=== PATIENT | male | born 1955 | race Caucasian/White ===

== ENCOUNTER 2016-05-25 20:09 | Emergency (ER) | payer OTHER ==
[~2016-05-25] VITALS: Ht 180.3 cm; Wt 111.1 kg
--- NOTE | 2016-05-25 21:30 | ED HEAD/FACIAL INJ COMPLAINT ---
History of Present Illness General Chief Complaint: Fall Stated Complaint: FALL AND HIT HEAD, NOT SURE LOC PER PT Source: patient Exam Limitations: no limitations Vital Signs & Intake/Output Vital Signs & Intake/Output Vital Signs Date Time Temp Pulse Resp B/P Pulse O2 O2 Flow FiO2 Ox Delivery Rate 05/25 2216 98.0 88 16 133/81 99 Room Air 05/25 2200 Room Air 05/26 2015 96.8 81 18 159/90 95 Room Air Allergies Coded Allergies: No Known Allergies (05/25/16) Reconcile Medications Albuterol Sulfate (Ventolin Hfa) 90 MCG HFA.AER.AD 2 PUF INH PRN ASTHMA ( Reported) Clobetasol Propionate 0.05 % CREAM..G. 1 DAWNA TOP PRN SKIN-BOTH HANDS ( Reported) apply to affected area(s) Duloxetine HCl 60 MG CAPSULE.DR 1 CAP PO DAILY MENTAL HEALTH (Reported) Eszopiclone 3 MG TABLET 1 TAB PO QPM PRN SLEEP (Reported) Fluticasone/Salmeterol (Advair 500-50 Diskus) 500 MCG-50 MCG/DOSE BLST.W.DEV 1 PUF INH BID ASTHMA (Reported) Montelukast Sodium 10 MG TABLET 1 TAB PO QPM ASTHMA (Reported) Multivitamin (Multi-Day Vitamins) 1 EACH TABLET 1 TAB PO DAILY SUPPLEMENT ( Reported) Pantoprazole Sodium 40 MG TABLET.DR 1 TAB PO DAILY GI (Reported) Valsartan/Hydrochlorothiazide (Valsartan-Hctz 160-12.5 MG Tab) 160 MG-12.5 MG TABLET 1 TAB PO DAILY DIURETIC/BP (Reported) Triage Note: PT TO THE ER S/P SLIP AND FALL ON ICE.. PT STATES THAT HE HIT HIS HEAD. PT DOESNT THINK HE LOC. PT STATES IT TOOK HIM A WHILE TO GET UP. PT STATES THAT HE HAS NECK PAIN 03/20. -BLOODTHINNER Triage Nurses Notes Reviewed? yes Severity: mild Severity Numbers: 1 Location: occipital Method of Injury: direct blow, fall HPI: Patient is a 61-year-old male who presents emergency room seen at today this evening while ambulating down a hill he slipped and struck the back part of his head to the ground where he does not believe he lost consciousness patient states that the injury she come up a little bit when he was drowsy afterwards however currently he feels much better complains of 10 headache described as generalized. Denies any loss of consciousness BLURRED vision photophobia neck pain vomiting no medications prior to arrival (ADAM DONIS) Past History Travel History Traveled to [place] past 21 day No Medical History Any Pertinent Medical History? see below for history Respiratory: asthma Gastrointestinal: ESOPHOGEAL ULCER Psychiatric: PTSD Surgical History Surgical History: non-contributory Psychosocial History What is your primary language Welsh Tobacco Use: Never used Family History Hx Contributory? No (ADAM DONIS) Review of Systems Review of Systems Constitutional: Reports: no symptoms. EENTM: Reports: no symptoms. Respiratory: Reports: no symptoms. Cardiovascular: Reports: no symptoms. GI: Reports: no symptoms. Genitourinary: Reports: no symptoms. Musculoskeletal: Reports: no symptoms. Skin: Reports: no symptoms. Neurological/Psychological: Reports: see HPI, headache. Hematologic/Endocrine: Reports: no symptoms. Immunologic/Allergic: Reports: no symptoms. All Other Systems: Reviewed and Negative (ADAM DONIS) Physical Exam Physical Exam General Appearance: no apparent distress, alert, comfortable Cranial Nerves: normal hearing, normal speech, PERRL Comments: Well-developed well-nourished person in no acute distress HEENT: Normal EENT exam, extraocular motion intact, no nystagmus. Pupils equally round and reactive to light and accommodation. Nose is atraumatic. External auditory canal and Tympanic membranes clear. Pharynx normal. No swelling or edema. Neck: Supple, no lymphadenopathy, normal range of motion without pain or tenderness Back: Nontender, no CVA tenderness. Cardiovascular: Regular rate and rhythms no murmurs rubs or gallops, normal JVP Respiratory: Chest nontender. No respiratory distress.breath sounds clear to auscultation bilaterally Abdomen: Soft, nontender nondistended, no appreciable organomegaly. Normal bowel sounds. No ascites Extremity: No edema, no calf tenderness to palpation, normal and equal pulses. Neuro: Alert oriented x3, motor sensory normal, cranial nerves II through XII grossly intact. Negative Romberg negative cerebellar testing Skin: No appreciable rash on exposed skin, skin is warm and dry. Psych: Mood and affect is normal, memory and judgment is normal. (ADAM DONIS) Progress Differential Diagnosis: corneal abrasion, c-spine injury, facial fracture, globe injury, ICH, orbit fracture, skull fracture Plan of Care: Orders Procedure Date/time Status CT HEAD WO IV CONTRAST 05/25 2128 Active Patient currently looks well no apparent distress has normal steady gait no C- spine tenderness. No loss of consciousness had occurred per patient. Denies any severe mechanism injury or headache concerns. No vomiting has occurred patient acting at baseline denies any alcohol use today. At this time patient does not require CT scan imaging however did discuss with patient to closely monitor symptoms and the symptoms worsen he will return to the emergency room for evaluation to rule out ICH (ADAM DONIS) Departure Departure Disposition: HOME OR SELF CARE Condition: Stable Clinical Impression Primary Impression: Minor head trauma Referrals: PATIENT HAS NO PRIMARY CARE DR (PCP/Family) Additional Instructions: As discussed for the next 48 hours please monitor your symptoms often and if symptoms worsen return to emergency room. On Saturday follow-up with your primary care doctor for further evaluation treatment. Departure Forms: Customer Survey General Discharge Information (ADAM DONIS) PA/SENIOR PRODUCT ENGINEER Co-Sign Statement Statement: ED Attending supervision documentation- [] I saw and evaluated the patient. I have also reviewed all the pertinent lab results and diagnostic results. I agree with the findings and the plan of care as documented in the PA's/SENIOR PRODUCT ENGINEER's documentation. [X] I have reviewed the ED Record and agree with the PA's/SENIOR PRODUCT ENGINEER's documentation. [] Additions or exceptions (if any) to the PAs/SENIOR PRODUCT ENGINEER's note and plan are summarized below: [] (KEEGAN RICHMOND,[place])
[2016-05-25] MEDS ORDERED: VENTOLIN HFA18 GM INH (21:31)
[2016-05-25] MEDS ORDERED: ADVAIR 500-501 EACH INH (21:32)
[2016-05-25] MEDS ORDERED: ESZOPICLONE3 M1 PO (21:32)
[2016-05-25] MEDS ORDERED: PANTOPRAZOLE SO40 M1 PO (21:32)
[2016-05-25] MEDS ORDERED: VALSARTAN-HCTZ1 EAC1 PO (21:32)
[2016-05-25] MEDS ORDERED: DULOXETINE HCL60 MG PO (21:33)
[2016-05-25] MEDS ORDERED: MULTI-DAY VITA1 EACH PO (21:34)
[2016-05-25] MEDS ORDERED: MONTELUKAST SOD10 M1 PO (21:34)
[2016-05-25] MEDS ORDERED: CLOBETASOL PROP15 GM TOP (21:34)
[2016-05-25 22:17] VITALS: BP 133/81
== END 2016-05-25 22:18 ==
LOC: ERH 20:09
DX: S09.90XA Unspecified injury of head, initial encounter (principal); W17.81XA Fall down embankment (hill), initial encounter; Y93.01 Activity, walking, marching and hiking; Y92.9 Unspecified place or not applicable